=== PATIENT | male | born 1975 | race Caucasian/White ===

== ENCOUNTER → 2022-07-18 | Outpatient (CLI) | payer BC ==
[~2022-07-18] MED LIST: CLEOCIN HCL300 MG PO; DESYREL 50 MG T50 MG PO; HYDROCODON-ACE1 EAC4 PO; LEVAQUIN750 MG PO; LEVOFLOXACIN750 MG PO; PROVENTIL HFA 61 INH INH; ROBITUSSIN DM473 ML PO
[2022-07-18 08:57] LABS: RED BLOOD COUNT 4.82 M/UL (4.20-5.50); WHITE BLOOD COUNT 8.9 K/UL (4.5-11.0)
[2022-07-18 09:23] LABS: BUN/CREATININE RATIO 22 (0-10)
== END ==
LOC: CATH 07:20
PROVIDERS: Internal Medicine Cardiovascular Disease
DX: Z45.010 Encounter for checking and testing of cardiac pacemaker pulse generator [battery] (principal); I49.5 Sick sinus syndrome; I08.1 Rheumatic disorders of both mitral and tricuspid valves; F32.A Depression, unspecified; G47.33 Obstructive sleep apnea (adult) (pediatric); Z87.891 Personal history of nicotine dependence; Z99.89 Dependence on other enabling machines and devices; Z88.8 Allergy status to other drugs, medicaments and biological substances; Z79.899 Other long term (current) drug therapy
CPT/HCPCS: ECHO; 33213; 71045; 80048; 85025; 93306; 99152; 99153; C1785; J2250; J3010; J3370; J7040; J7050